=== PATIENT | male | born 1935 | race Caucasian/White ===

== ENCOUNTER 2016-11-29 10:11 | Day surgery (SDC) | payer MEDICARE, OTHER ==
[2016-11-26 09:20] VITALS: BP 136/87
[2016-11-26 09:23] LABS: HEMOGLOBIN 14.4 g/dL (13.7-18.0)
[2016-11-26 09:29] LABS: ASPARTATE AMINO TRANSFERASE 8 U/L (15-37); BLOOD UREA NITROGEN 13 mg/dL (7-18)
[~2016-11-29] VITALS: Ht 188 cm; Wt 100.0 kg
[~2016-11-29 10:11] MED LIST: APIX5TAB PO; CARV12.543 PO; CARV3.122 PO; HYDR25TA6 PO; LISI5TAB7 PO; POTA10TA11 PO; TAMS-11 PO
[2016-11-29] MEDS ORDERED: MIDAZOLAM 1 MG/ML, 2ML IV ONE (11:00)
[2016-11-29] MEDS ORDERED: FENTANYL PF 100 MCG/2ML IV ONE (11:00)
[2016-11-29] MEDS ORDERED: MIDAZOLAM 1 MG/ML, 5ML ONE (12:39)
[2016-11-29] MEDS ORDERED: FENTANYL PF 100 MCG/2ML ONE (12:39)
[2016-11-29] MEDS ORDERED: SODIUM CHLORIDE FLUSH 10ML SYR IVF SCH (21:00)
== END 2016-11-29 14:35 | disposition home or self-care (01) ==
LOC: CACL 10:11
PROVIDERS: ATTEND Internal Medicine Cardiovascular Disease
DX: I48.0 Paroxysmal atrial fibrillation (principal); I42.9 Cardiomyopathy, unspecified; I10 Essential (primary) hypertension; Z87.891 Personal history of nicotine dependence
CPT/HCPCS: 36415; 71020; 80053; 85025; 85610; 85730; 92960; J2250; J3010

== ENCOUNTER 2016-12-23 09:45 | Inpatient (IN) | payer MEDICARE, OTHER ==
[~2016-12-23] VITALS: Ht 188 cm; Wt 100.8 kg
[2016-12-23] MEDS ORDERED: PLEASE ENTER HEIGHT AND WEIGHT MC SCH (10:30)
[2016-12-23 11:05] VITALS: BP 138/93
[2016-12-23 11:34] LABS: BLOOD UREA NITROGEN 16 mg/dL (7-18)
[2016-12-23] MEDS: SOTALOL 120MG TABLET PO SCH ×2 (12:03→20:16)
[2016-12-23 16:26] VITALS: BP 139/103
[2016-12-23] MEDS ORDERED: MAGNESIUM HYDROXIDE 8%, 30ML UDC PO PRN (16:30)
[2016-12-23] MEDS ORDERED: ACETAMINOPHEN 650 MG/20.3 ML UDC PO PRN (16:30)
[2016-12-23] MEDS ORDERED: ZOLPIDEM 5MG TABLET PO PRN (16:30)
[2016-12-23] MEDS ORDERED: PROMETHAZINE 25 MG/ML, 1ML IM PRN (16:30)
[2016-12-23 18:44] VITALS: BP 149/95
[2016-12-23] MEDS: APIXABAN 5 MG TABLET PO SCH (20:16)
[2016-12-23] MEDS ORDERED: SOTALOL 120MG TABLET PO SCH (21:00)
[2016-12-24 02:58] VITALS: BP 125/86
[2016-12-24] MEDS: APIXABAN 5 MG TABLET PO SCH ×2 (08:16→20:53)
[2016-12-24] MEDS: TAMSULOSIN 0.4 MG CAP.ER.24H PO SCH (08:16)
[2016-12-24] MEDS: SOTALOL 120MG TABLET PO SCH ×3 (08:16→17:48)
[2016-12-24 08:23] VITALS: BP 146/102
[2016-12-24] MEDS ORDERED: LISINOPRIL 5 MG TABLET PO SCH (09:00)
[2016-12-24] MEDS ORDERED: LISINOPRIL 5 MG TABLET PO ONE (09:30)
[2016-12-24 14:57] VITALS: BP 110/72
[2016-12-24 20:30] VITALS: BP 117/77
[2016-12-25 03:19] VITALS: BP 129/73
[2016-12-25] MEDS: SOTALOL 120MG TABLET PO SCH (06:19)
[2016-12-25 06:59] VITALS: BP 121/81
[2016-12-25 08:40] VITALS: BP 128/88
[2016-12-25] MEDS: APIXABAN 5 MG TABLET PO SCH (08:43)
[2016-12-25] MEDS: TAMSULOSIN 0.4 MG CAP.ER.24H PO SCH (08:43)
[2016-12-25] MEDS ORDERED: LISINOPRIL 10 MG TABLET PO SCH (09:00)
[2016-12-25] MEDS ORDERED: PROPOFOL 10 MG/ML, 20ML ONE (09:26)
[2016-12-25 10:44] VITALS: BP 114/75
[2016-12-25] MEDS ORDERED: LISI-167 PO (12:31)
[2016-12-25] MEDS ORDERED: SOTA120T14 PO (12:31)
[2016-12-25 13:20] VITALS: BP 92/60
[2016-12-25 14:29] VITALS: BP 95/58
== END 2016-12-25 16:00 | disposition home or self-care (01) | DRG 309 ==
LOC: 5SO 09:45 → DCLOUNGE 12-25 15:34
PROVIDERS: ADMIT Internal Medicine Cardiovascular Disease; ATTEND Internal Medicine Cardiovascular Disease
PROC: 5A2204Z Restoration of Cardiac Rhythm, Single (ICD-10-PCS; principal; 2016-12-25 10:30)
DX: I48.0 Paroxysmal atrial fibrillation (principal); D68.69 Other thrombophilia; I07.1 Rheumatic tricuspid insufficiency; I10 Essential (primary) hypertension; I35.8 Other nonrheumatic aortic valve disorders; Z87.891 Personal history of nicotine dependence; I11.0 Hypertensive heart disease with heart failure; I50.9 Heart failure, unspecified; I42.9 Cardiomyopathy, unspecified; I48.92 Unspecified atrial flutter
CPT/HCPCS: 36415; 80048; 92960; 93005; J2704

== ENCOUNTER 2017-06-18 10:01 | Day surgery (SDC) | payer MEDICARE, OTHER ==
[~2017-06-18 10:01] MED LIST changes: +LISI-167 PO; +SOTA120T14 PO
== END 2017-06-18 10:52 ==
LOC: CACL 10:01
PROVIDERS: ATTEND Internal Medicine Cardiovascular Disease
DX: I48.0 Paroxysmal atrial fibrillation (principal); I42.9 Cardiomyopathy, unspecified; I10 Essential (primary) hypertension
CPT/HCPCS: 92960; 93005

== ENCOUNTER → 2018-03-11 | Outpatient (CLI) | payer MEDICARE, OTHER | END | disposition home or self-care (01) | LOC: CVU 10:43 | PROVIDERS: ATTEND Internal Medicine Cardiovascular Disease | DX: I35.0 Nonrheumatic aortic (valve) stenosis (principal); I42.9 Cardiomyopathy, unspecified; I10 Essential (primary) hypertension; I48.91 Unspecified atrial fibrillation | CPT/HCPCS: 93306 ==

== ENCOUNTER 2020-05-04 06:10 | Day surgery (SDC) | payer MEDICARE, OTHER ==
[~2020-05-04] VITALS: Ht 185.4 cm; Wt 100.0 kg
[2020-05-04] MEDS ORDERED: LIDOCAINE 2%, 20ML ONE (07:33)
== END 2020-05-04 08:20 | disposition home or self-care (01) ==
LOC: CACL 06:10
PROVIDERS: ATTEND Internal Medicine Cardiovascular Disease
DX: I49.5 Sick sinus syndrome (principal); I48.0 Paroxysmal atrial fibrillation; I11.0 Hypertensive heart disease with heart failure; I50.9 Heart failure, unspecified; I42.9 Cardiomyopathy, unspecified; E03.9 Hypothyroidism, unspecified; E78.5 Hyperlipidemia, unspecified; Z79.01 Long term (current) use of anticoagulants; Z79.890 Hormone replacement therapy; Z79.899 Other long term (current) drug therapy
CPT/HCPCS: 33285; C1764